=== PATIENT | female | born 1995 | race Caucasian/White ===

== ENCOUNTER 2023-01-31 17:07 | Emergency (ER) | payer SELFPAY ==
[~2023-01-31] VITALS: Ht 167.6 cm; Wt 61.0 kg
[2023-01-31] MEDS ORDERED: ACETAMINOPHEN 325MG TABLET PO PRN (17:30)
[2023-01-31] MEDS ORDERED: SODIUM CHLORIDE 0.9% 1,000 ML IV ONE (17:30)
[2023-01-31 18:16] LABS: BASOPHILS % 0.3 % (0.0-2.0); HEMATOCRIT. 44.6 % (36.0-48.0); HEMOGLOBIN. 15.2 g/dL (12.0-16.0); LYMPHOCYTES % 14.9 % (20.0-50.0); MEAN CORPUSCULAR HEMOGLOBIN 28.8 pg (28.0-32.0); MEAN CORPUSCULAR VOLUME 84.2 fL (81.0-99.0); MEAN PLATELET VOLUME 9.3 fl (7.4-10.4); MONOCYTES % 4.3 % (2.0-8.0); NEUTROPHILS % 80.5 % (40.0-76.0); PLATELET 275 x1000/uL (130-400); RED BLOOD CELL COUNT 5.29 mill/uL (4.2-5.4); RED CELL DISTRIBUTION WIDTH 14.3 % (11.6-14.6)
[2023-01-31 18:24] LABS: CHLORIDE 107 mEq/L (98-107)
[2023-01-31 18:33] LABS: B-HCG QUANTITATIVE < 1 mIU/mL (<3)
[2023-01-31] MEDS ORDERED: KETOROLAC 15MG/ML VIAL IV ONE (19:00)
[2023-01-31] MEDS ORDERED: IBUP-2029 MT (19:44)
[2023-01-31] MEDS ORDERED: ONDA4TAB50 MT (19:44)
[2023-01-31] MEDS ORDERED: NALO4SPR BOTHNSTRLS (19:44)
[2023-01-31 20:25] LABS: CLARITY URINE CLOUDY (CLEAR); COLOR URINE DARK YELLOW (YELLOW); KETONES URINE 2+ (NEGATIVE); LEUKOCYTE ESTERASE URINE TRACE (NEGATIVE); NITRITE URINE POSITIVE (NEGATIVE); OCCULT BLOOD URINE TRACE (NEGATIVE); PH URINE 5.5 (4.5-8.0); PROTEIN URINE 1+ (NEGATIVE); SPECIFIC GRAVITY URINE 1.043 (1.005-1.030)
[2023-01-31 20:43] LABS: *BARBITURATES SCREEN URINE NEGATIVE (NEGATIVE); *BENZODIAZEPINES SCREEN URINE NEGATIVE (NEGATIVE); *COCAINE SCREEN URINE NEGATIVE (NEGATIVE); METHADONE URINE SCREEN NEGATIVE (NEGATIVE); OPIATES URINE SCREEN NEGATIVE (NEGATIVE); PHENCYCLIDINE URINE SCREEN NEGATIVE (NEGATIVE)
[2023-01-31] MEDS ORDERED: CEPH500C2 MT (20:44)
[2023-01-31] MEDS ORDERED: CEPHALEXIN 250MG CAPSULE PO NR (20:45)
[2023-01-31 21:00] LABS: *AMPHETAMINES SCREEN URINE PRESUMTIVE POSITIVE (NEGATIVE); CANNABINOID URINE SCREEN PRESUMTIVE POSITIVE (NEGATIVE)
[2023-01-31 21:09] VITALS: BP 129/83
== END 2023-01-31 21:47 | disposition home or self-care (01) ==
LOC: ER 17:07
DX: F11.23 Opioid dependence with withdrawal (principal); N39.0 Urinary tract infection, site not specified
CPT/HCPCS: 36415; 76830; 76856; 80053; 80305; 81003; 81025; 84702; 85025; 86850; 86900; 86901; 96374; 99285; J1885; J7030; Z7610